=== PATIENT | female | born 1960 | race Caucasian/White ===

== ENCOUNTER 2016-04-16 18:16 | Emergency (ER) | payer MEDICAID, OTHER ==
[2016-04-16] MEDS ORDERED: IOPAMIDOL 300 (61%) 100 ML VIAL IV ONE (18:17)
[2016-04-16 20:42] LABS: CALCIUM 9.4 mg/dL (8.6-10.3)
[2016-04-16 21:11] LABS: ABSOLUTE NEUTROPHIL COUNT 3.5 K/mm3 (1.8-7.7); BASO % 0.6 % (0.2-1.0); EOS # 0.2 (0.0-0.5); EOS % 2.4 % (0.9-2.9); HEMATOCRIT 45.5 % (37.0-47.0); HEMOGLOBIN 14.3 gm/l (12.0-16.0); IMM NEUT% 0.1 % (0-1); LYMPH # 2.5 (1.0-4.8); LYMPH % 37.3 % (15-45); MEAN CELL VOLUME 101.6 fl (81.0-99.0); MEAN CORPUSCULAR HEMOGLOBIN 31.9 pg (27.0-31.0); MEAN CORPUSCULAR HGB CONC 31.4 g/dl (33.0-37.0); MONO # 0.5 (0.0-0.8); MONO % 7.7 % (4-12); NEUT % 51.9 % (43-75); PLATELET COUNT 191 K/mm3 (130-400); RED CELL DISTRIBUTION WIDTH 13.6 % (11.5-14.5)
[2016-04-16] MEDS ORDERED: LORAZEPAM 2 MG/ML 1ML SDV ONE (21:16)
--- NOTE | 2016-04-16 21:17 | US ---
THYROID/SOFT TISSUE HEAD/NECK COMPARISON: None HISTORY: Lump on whole right side of neck since August 2015, treated with thyroid medications and started going away, but has returned since stopped using medication. FINDINGS: Mass: Heterogeneous mass located lateral right neck surrounding the carotid artery, 9.8 x 7.8 x 6.7 cm. Left thyroid 7.3 x 4.1 x 3.1 cm. IMPRESSION: 1. Massively enlarged thyroid gland. Larger on the right than the left. Multinodular goiter favored over individual neoplasms. Report sent to the emergency department [facility] electronic medical record system 04/16/2016 at 21:18.
--- NOTE | 2016-04-16 21:19 | RAD ---
SOFT TISSUE NECK COMPARISON: Thyroid ultrasound, 04/16/2016 HISTORY: Neck mass. FINDINGS: Views: AP and lateral views of the soft tissues of the neck. Hypopharynx: Normal. Larynx: Normal. Trachea: Normal. Prevertebral soft tissues: Marked enlargement displacing the airway anteriorly Epiglottis: Normal. Hyoid bone: Normal. Cervical spine: Normal. IMPRESSION: 1. Large soft tissue mass, greater on the right than the left, scattered calcifications, also located between the spine and the airway, displacing the airway anteriorly.
[2016-04-16 21:27] LABS: THYROID STIMULATING HORMONE 18.93 uIU/ml (0.34-5.60)
[2016-04-16 21:33] LABS: FREE T4 0.49 ng/dL (0.58-1.64)
--- NOTE | 2016-04-17 09:33 | CT ---
NECK SOFT TISSUE W/ CON COMPARISON: 04/16/2016 ultrasound of the thyroid gland and 2 views soft tissue neck HISTORY: 55-year-old female smoker with a history of hypothyroidism and goiter. Neck mass and sore throat, the swelling increased seen. She ran out of levothyroxin and has not been taking it for about one month. TECHNIQUE: Intravenous injection 80 mL Isovue 300. Using a [employer] Aquilion [address] scanner, images obtained from the superior mediastinum to the skull base. An automated dose reduction technique was used to minimize patient radiation dose. Dose information: CTDIvol (mGy): 11.70 DLP(mGycm): 384.80 FINDINGS: Lymph nodes: Bilateral cervical lymphadenopathy. Superior mediastinum: Lymphadenopathy. Vessels: The right common and internal carotid arteries are encased by a mass. Extrinsic compression of the right internal jugular vein by a mass. Nasopharynx: Normal. Oropharynx: Normal. Hypopharynx: Normal. Larynx: Displaced anteriorly and to the left by an extrinsic mass. Epiglottis: Normal. Esophagus: Normal. Trachea: Displaced anterior and to the left by an extrinsic mass. Tongue: Normal. Salivary glands: Normal. Thyroid gland: Both lobes are enlarged and macro lobular. There is a poorly enhancing mass arising or invading the superior pole of the right lobe and encasing the right common and internal carotid arteries, up to 12.8 cm cranial caudal by 7 cm anterior posterior by 8.9 cm transverse, with marked mass effect on the airway causing extrinsic narrowing, anterior displacement, and left lateral displacement. Retropharyngeal space: Intubated by a mass contiguous with the right lobe of thyroid gland Parapharyngeal space: Normal. Paranasal sinuses: Normal. Nasal passages: Normal. Facial bones: Normal. Orbits: Normal. Cervical spine: Mild degenerative changes. Lung apices: Normal. Paraspinal muscles: Normal. IMPRESSION: 1. Marked thyromegaly/goiter with a poorly enhancing 12.8 x 7.0 x 8.9 cm mass arising from or invading the upper pole of the right lobe, encasing the right common and internal carotid arteries, and causing extrinsic mass effect upon the airway, displacing it anteriorly and to the left, with airway narrowing. Preliminary report by [facility] radiologist Herson Atwood M.D. 04/16/2016 at 22:52
== END 2016-04-17 01:53 | disposition short-term general hospital (02) ==
LOC: ED 18:16
DX: R22.1 Localized swelling, mass and lump, neck (principal); E03.9 Hypothyroidism, unspecified; R06.02 Shortness of breath
CPT/HCPCS: 85025; 80048; 84439; 84443; 70360; 70491; 76536; 99284; 96374; 99285; J2060; Q9967